=== PATIENT | male | born 1985 | race Caucasian/White ===

== ENCOUNTER 2023-09-10 09:56 | Emergency (ER) | payer MEDICAID ==
[~2023-09-10] VITALS: Ht 160 cm; Wt 117.9 kg
[2023-09-10 09:59] VITALS: BP 106/69; PULSE 103; RESP 18; TEMP 97.8; O2SAT 95
[2023-09-10] MEDS ORDERED: IBUP-2213 PO (11:11)
[2023-09-10] MEDS ORDERED: PRED20TA5 PO (11:11)
== END 2023-09-10 11:14 | disposition home or self-care (01) ==
LOC: MED 09:56
DX: R05.9 Cough, unspecified (principal); R07.0 Pain in throat; Z79.899 Other long term (current) drug therapy
CPT/HCPCS: 71045; 99283

== ENCOUNTER 2024-03-28 11:29 | Emergency (ER) | payer MEDICAID, OTHER ==
[~2024-03-28] VITALS: Ht 160 cm; Wt 119.9 kg
[~2024-03-28 11:29] MED LIST: IBUP-2213 PO; PRED20TA5 PO
[2024-03-28 11:37] VITALS: BP 108/66; PULSE 95; RESP 18; TEMP 97.5; O2SAT 94
[2024-03-28 11:55] VITALS: O2SAT 94
[2024-03-28] MEDS: LIDOCAINE MPF 1% 10 MG/ML VIAL INJ ONE (12:27)
[2024-03-28] MEDS ORDERED: CEPH-588 PO (13:42)
[2024-03-28] MEDS ORDERED: BACI-418 TP (13:42)
[2024-03-28] MEDS ORDERED: IBUP-2213 PO (13:42)
== END 2024-03-28 14:00 | disposition home or self-care (01) ==
LOC: MED 11:29
DX: L60.0 Ingrowing nail (principal); Z79.899 Other long term (current) drug therapy
CPT/HCPCS: 11730; 99284; J2001